=== PATIENT | male | born 1960 | race Caucasian/White ===

== ENCOUNTER 2022-06-28 19:39 | Emergency (ER) | payer OTHER ==
[~2022-06-28] VITALS: Ht 185.4 cm; Wt 80.7 kg
--- NOTE | 2022-06-28 20:13 | NUR ---
Dr. Wagner at bedside. MSE in progress.
[2022-06-28] MEDS ORDERED: DICYCLOMINE HCL LIQ 10 MG/5 ML UDC PO ONE (20:15)
[2022-06-28] MEDS ORDERED: PANTOPRAZOLE SODIUM 40 MG TABLET.DR PO ONE ×2 (20:15→20:37)
[2022-06-28 20:35] LABS: HEMATOCRIT 38.9 % (36.7-47.1); MEAN CORPUSCULAR HEMOGLOBIN 31.9 uug (23.8-33.4); MEAN CORPUSCULAR VOLUME 93.2 fL (73.0-96.2); PLATELET COUNT (AUTO) 213 K/uL (152-348)
[2022-06-28] MEDS ORDERED: DICYCLOMINE HCL LIQ 10 MG/5 ML UDC ONE (20:37)
--- NOTE | 2022-06-28 20:42 | NUR ---
x-ray at bedside.
[2022-06-28] MEDS ORDERED: ASPIRIN 81 MG TAB.CHEW PO ONE (20:45)
[2022-06-28 20:47] LABS: CARBON DIOXIDE 28 mmol/L (21-32); CHLORIDE 105 mmol/L (98-107); GLUCOSE 173 mg/dL (74-106); LIPASE 161 U/L (73-393); MAGNESIUM 2.1 mg/dL (1.8-2.4); POTASSIUM 3.9 mmol/L (3.5-5.1); UREA NITROGEN, BLOOD 14 mg/dL (7-18)
[2022-06-28] MEDS ORDERED: ASPIRIN 81 MG TAB.CHEW ONE (20:53)
[2022-06-28 21:00] LABS: ALANINE AMINOTRANSFERASE 11 U/L (16-63); ALKALINE PHOSPHATASE 74 U/L (50-136); ASPARTATE AMINOTRANSFERASE < 5 U/L (15-37); BILIRUBIN,DIRECT 0.1 mg/dL (0.0-0.2); BILIRUBIN,TOTAL 0.2 mg/dL (0.2-1.0); ETHANOL < 3 MG/DL (0-0); TOTAL PROTEIN, SERUM 6.7 g/dL (6.4-8.2)
--- NOTE | 2022-06-28 22:00 | NUR ---
Patient sleeping, easily aroused when asked a question.
[2022-06-29] MEDS ORDERED: OMEP40CA21 PO (00:56)
[2022-06-29] MEDS ORDERED: DICY20TA11 PO (00:56)
--- NOTE | 2022-06-29 01:30 | NUR ---
Patient discharged to home in stable condition. A/O x3. NAD noted. Written and verbal after care instructions given. Patient verbalizes understanding of instructions. Stressed follow up or return to ER for worsening s/s.
[2022-06-29 01:34] VITALS: BP 128/64
== END 2022-06-29 01:35 | disposition home or self-care (01) ==
LOC: ER 19:39
DX: G89.29 Other chronic pain (principal); R10.10 Upper abdominal pain, unspecified; S90.822A Blister (nonthermal), left foot, initial encounter; S90.821A Blister (nonthermal), right foot, initial encounter; X58.XXXA Exposure to other specified factors, initial encounter; Y92.89 Other specified places as the place of occurrence of the external cause; F17.210 Nicotine dependence, cigarettes, uncomplicated; E11.9 Type 2 diabetes mellitus without complications; G47.30 Sleep apnea, unspecified
CPT/HCPCS: 36415; 71045; 83690; 83735; 84484; 85025; 93005; A4663; G0480